=== PATIENT | male | born 1970 | race Caucasian/White ===

== ENCOUNTER 2018-06-03 20:17 | Emergency (ER) | payer OTHER, SELFPAY ==
[2018-06-03 20:20] VITALS: BP 160/102; PULSE 79; RESP 18; TEMP 37; O2SAT 98; BMI 30.2
--- NOTE | 2018-06-03 20:49 | ED.EPISTAXIS ---
HPI - Epistaxis <TISHA Beck - Last Filed: 06/03/18 21:58> General Chief complaint: Nasal Problem Stated complaint: bloody nose all day Time Seen by Provider: 06/03/18 20:37 Source: patient Mode of arrival: ambulatory Limitations: no limitations History of Present Illness HPI Narrative: Patient presents with chief complaint of epistaxis off and on throughout the day. He states that his nose bleeds for approximately 20 min and then hold pressure on it stops. He is primarily concerned given his history of ITP that was 5 years ago. He states that he presented at the same way when he was diagnosed with ITP. He complains of some nausea from swallowing blood. Otherwise he states he feels okay. He denies petechiae, but states he had them when he was diagnosed with ITP. Requesting a CBC check. Related Data Allergies Allergy/AdvReac Type Severity Reaction Status Date / Time No Known Drug Allergies Allergy Unverified 01/01/18 08:44 Review of Systems <HENRIETTA Beck - Last Filed: 06/03/18 21:58> Review of Systems GENERAL: Denies chills, fatigue, malaise, fever, sweats. HEENT: See HPI RESPIRATORY: Denies dyspnea, cough, wheezing, hemoptysis, sputum. CARDIOVASCULAR: Denies chest pain, palpitations, orthopnea, edema, GASTROINTESTINAL: Denies nausea, vomiting, abdominal pain, diarrhea, constipation, melena. : Denies dysuria, frequency, incontinence, hematuria, urinary retention. MUSCULOSKELETAL: denies weakness, joint pain, or bony pain SKIN: Denies rash, skin lesions, or other NEUROLOGIC: Denies weakness, headache, numbness, change in speech, confusion, seizures, incoordination. PSYCHIATRIC: No concerning psychosocial issues. 12 point review of systems is negative except for those stated above Exam <HENRIETTA Beck - Last Filed: 06/03/18 21:58> Narrative Exam Narrative: GENERAL: This is a well-nourished, well-developed patient, sitting on stretcher with nose clip on HEAD: Atraumatic. Normocephalic. No temporal or scalp tenderness. EYES: Pupils equal round and reactive. Extraocular motions intact. No scleral icterus. No injection or drainage. ENT: Clip on nose. No obvious bleeding. Throat without erythema, tonsillar hypertrophy or exudate. Uvula midline. Airway patent. NECK: Trachea midline. No JVD or lymphadenopathy. Supple, nontender, no meningeal signs. CARDIOVASCULAR: Regular rate and rhythm without murmurs, gallops, or rubs. RESPIRATORY: Clear to auscultation. Breath sounds equal bilaterally. No wheezes, rales, or rhonchi. GASTROINTESTINAL: Abdomen soft, non-tender, nondistended. No hepato-splenomegaly, or palpable masses. No guarding. EXTREMITIES: No clubbing, cyanosis, or edema. No joint tenderness, effusion, or edema noted. BACK: Nontender without deformity or crepitance. No flank tenderness. NEURO: AOx3. SKIN: No rash or erythema. No petechiae. Initial Vital Signs Initial Vital Signs: Vital Signs Temperature 98.6 F 06/03/18 20:20 Pulse Rate 79 06/03/18 20:20 Respiratory Rate 18 06/03/18 20:20 Blood Pressure 160/102 H 06/03/18 20:20 Pulse Oximetry 98 06/03/18 20:20 <Britney Godfrey DO - Last Filed: 06/05/18 01:50> Initial Vital Signs Initial Vital Signs: Vital Signs Temperature 98.6 F 06/03/18 20:20 Pulse Rate 79 06/03/18 20:20 Respiratory Rate 18 06/03/18 20:20 Blood Pressure 160/102 H 06/03/18 20:20 Pulse Oximetry 98 06/03/18 20:20 Course <ALEJANDRO Beck- - Last Filed: 06/03/18 21:58> Orders Ordered: ED Orders 06/03/18 21:07 Complete Blood Count AUTO DIFF Stat Reevaluation(s) Reevaluation #1: Discussed normal lab results with patient. Remove nose clip. No bleeding recurred. No obvious bleeding upon nasal exam. Time: 21:30 Reevaluation #2: Patient has had no rebleeding of nose. States her to go home. No questions or concerns. Time: 22:00 Vital Signs - 8 hr 06/03/18 20:20 06/03/18 21:41 Temperature 98.6 F Pulse Rate 79 66 Respiratory Rate 18 16 Blood Pressure 160/102 H Blood Pressure [Left Arm] 147/84 H Pulse Oximetry 98 99 <Britney Godfrey DO - Last Filed: 06/05/18 01:50> Orders Ordered: ED Orders 06/03/18 21:07 Complete Blood Count AUTO DIFF Stat Vital Signs - 8 hr 06/03/18 20:20 06/03/18 21:41 Temperature 98.6 F Pulse Rate 79 66 Respiratory Rate 18 16 Blood Pressure 160/102 H Blood Pressure [Left Arm] 147/84 H Pulse Oximetry 98 99 MDM - Epistaxis <HENRIETTA BeckBC - Last Filed: 06/03/18 21:58> Lab Data Result diagrams: 06/03/18 21:07 Lab Results 06/03/18 Range/Units 21:07 WBC 8.4 (4.5-11.0) X10^3/uL RBC 5.35 (4.5-5.9) X10^6/uL Hgb 16.2 (13.5-17.5) g/dL Hct 46.7 (41-53) % MCV 87.3 (80-100) fL MCH 30.4 (26-34) PG MCHC 34.8 (30-36) % RDW 12.9 (11.6-14.8) % Plt Count 189 (150-400) X10^3/uL Neut % (Auto) 47.1 L (50-75) % Lymph % (Auto) 38.8 (25-40) % Latimer % (Auto) 8.6 (3-14) % Eos % (Auto) 4.7 H (2-4) % Baso % (Auto) 0.8 (0-2) % Neut # (Auto) 3900 (0522-3597) /uL MDM Narrative Medical decision making narrative: Patient presents with epistaxis. He requested a CBC due to his history of ITP, which came back normal. His nose did not rebleed after removal of nose clip. I discussed at length monitoring for rebleeding, following up with primary care provider for worsening or no improvement. I discussed using nose clip in pressure if 3 bleeding were to occur. Patient questions or concerns. <Britney Godfrey DO - Last Filed: 06/05/18 01:50> Lab Data Lab Results 06/03/18 Range/Units 21:07 WBC 8.4 (4.5-11.0) X10^3/uL RBC 5.35 (4.5-5.9) X10^6/uL Hgb 16.2 (13.5-17.5) g/dL Hct 46.7 (41-53) % MCV 87.3 (80-100) fL MCH 30.4 (26-34) PG MCHC 34.8 (30-36) % RDW 12.9 (11.6-14.8) % Plt Count 189 (150-400) X10^3/uL Neut % (Auto) 47.1 L (50-75) % Lymph % (Auto) 38.8 (25-40) % Latimer % (Auto) 8.6 (3-14) % Eos % (Auto) 4.7 H (2-4) % Baso % (Auto) 0.8 (0-2) % Neut # (Auto) 3900 (6308-4139) /uL Discharge Plan Departure Patient Disposition: Home Clinical Impression: Epistaxis Discharge Date/Time: 06/03/18 22:04 Interventions: ED Discharge Assessment Last Done: 06/03/18 22:04 Instructions: Nosebleeds (Alternative Therapy), DI for Nosebleed Activity Restrictions/Additional Instructions: Your CBC check came back normal today. Your nose stopped bleeding after removal of the clip. I have given you instructions regarding nosebleeds, Including sitting forward and pinching your nose if rebleeding occurs. Please follow up with PCP if needed or come back to the ED if necessary. Referrals: Helen Sesay DO [Primary Care Provider] - <Britney Godfrey DO - Last Filed: 06/05/18 01:50> Cosign ED Attending Rodriguezature Attestation: I was immediately available in the department for consultation. Documentation has been reviewed. I agree with assessment and plan.
[2018-06-03 21:18] LABS: Add Manual Diff / Slide Review NO; Basophils Percent Auto 0.8 % (0-2); Eosinophils Percent Auto 4.7 % (2-4); Hematocrit 46.7 % (41-53); Hemoglobin 16.2 g/dL (13.5-17.5); Lymphocytes Percent Auto 38.8 % (25-40); Mean Corpuscular HGB Conc 34.8 % (30-36); Mean Corpuscular Hemoglobin 30.4 PG (26-34); Mean Corpuscular Volume 87.3 fL (80-100); Monocytes Percent Auto 8.6 % (3-14); Neutrophils Absolute Auto 3900 /uL (3000-5900); Neutrophils Percent Auto 47.1 % (50-75); Platelet Count 189 X10^3/uL (150-400); Red Blood Cell Count 5.35 X10^6/uL (4.5-5.9); Red Cell Distribution Width 12.9 % (11.6-14.8); White Blood Cell Count 8.4 X10^3/uL (4.5-11.0)
[2018-06-03 21:41] VITALS: BP 147/84; PULSE 66; RESP 16; O2SAT 99
== END 2018-06-03 22:04 | disposition home or self-care (01) ==
PROVIDERS: Emergency Provider Nurse Practitioner Family; Family Provider Family Medicine; PCP Family Medicine
DX: R04.0 Epistaxis (principal); Z86.2 Personal history of diseases of the blood and blood-forming organs and certain disorders involving the immune mechanism
CPT/HCPCS: 36415; 85025; 99282; 99283

== ENCOUNTER → 2019-08-01 12:25 | Outpatient (CLI) | payer OTHER, SELFPAY ==
[2019-08-01 12:49] LABS: Add Manual Diff / Slide Review NO; Basophils Absolute Auto 0 /uL (0-100); Basophils Percent Auto 0.7 % (0-2); Eosinophils Absolute Auto 200 /uL (0-450); Eosinophils Percent Auto 3.6 % (2-4); Hematocrit 44.3 % (41-53); Hemoglobin 15.4 g/dL (13.5-17.5); Lymphocytes Absolute Auto 2200 /uL (1100-4500); Lymphocytes Percent Auto 40.9 % (25-40); Mean Corpuscular HGB Conc 34.7 % (30-36); Mean Corpuscular Hemoglobin 31.2 PG (26-34); Mean Corpuscular Volume 89.8 fL (80-100); Monocytes Absolute Auto 500 /uL (0-900); Neutrophils Absolute Auto 2400 /uL (1500-7000); Neutrophils Percent Auto 45.8 % (50-75); Platelet Count 162 X10^3/uL (150-400); Red Blood Cell Count 4.93 X10^6/uL (4.5-5.9); Red Cell Distribution Width 13.1 % (11.6-14.8); White Blood Cell Count 5.3 X10^3/uL (4.5-11.0)
[2019-08-01 13:31] LABS: Alanine Aminotransferase 22 IU/L (<50); Albumin 4.5 g/dL (3.5-5.0); Albumin Globulin Ratio 1.9 (1.0-2.8); Alkaline Phosphatase 58 U/L (38-126); Aspartate Aminotransferase 25 IU/L (17-59); BUN Creatinine Ratio 14.4 (6-22); Bilirubin Total 2.2 mg/dL (0.2-1.3); Blood Urea Nitrogen 13 mg/dL (9-20); Calcium 9.6 mg/dL (8.4-10.2); Carbon Dioxide 29 mmol/L (22-32); Chloride 103 mmol/L (98-107); Cholesterol 233 mg/dL (140-199); Estimated Glomerular Filt Rate > 60.0 mL/min (>60); Globulin 2.4 g/dL (1.7-4.1); Glucose 95 mg/dL (70-100); HDL Cholesterol 63 mg/dL (40-60); HEMOLYSIS < 15 (0-50); LDL Cholesterol Calculated 152 mg/dL (<100); Potassium 4.6 mmol/L (3.4-5.1); Sodium 140 mmol/L (137-145); Total Protein 6.9 g/dL (6.3-8.2); Triglycerides 88 mg/dL (35-150)
[2019-08-01 13:45] LABS: Free T3, Triiodothyronine Free 3.47 pg/mL (2.77-5.27); Free T4, Direct Thyroxine 0.99 ng/dL (0.78-2.19)
[2019-08-01 13:57] LABS: Prostate Specific Antigen 0.426 ng/mL (0.10-4.00)
[2019-08-01 13:59] LABS: Thyroid Stimulating Hormone 2.16 uIU/mL (0.47-4.68)
== END ==
PROVIDERS: PCP Family Medicine; Visit Provider Nurse Practitioner
DX: Z00.00 Encounter for general adult medical examination without abnormal findings (principal); E78.5 Hyperlipidemia, unspecified; Z83.49 Family history of other endocrine, nutritional and metabolic diseases; Z86.2 Personal history of diseases of the blood and blood-forming organs and certain disorders involving the immune mechanism
CPT/HCPCS: 36415; 80053; 80061; 84153; 84439; 84443; 84481; 85025

== ENCOUNTER → 2021-08-21 10:37 | Outpatient (CLI) | payer OTHER, SELFPAY ==
[2021-08-21 12:12] LABS: COVID19 -Nasal RAPID POSITIVE (Negative)
== END ==
PROVIDERS: PCP Family Medicine; Visit Provider Physician Assistant
DX: U07.1 COVID-19 (principal); Z20.822 Contact with and (suspected) exposure to COVID-19
CPT/HCPCS: 87635

== ENCOUNTER → 2023-11-10 08:00 | Outpatient (CLI) | payer OTHER, SELFPAY ==
--- NOTE | 2023-11-10 08:01 | DI.RAD.S_ITS ---
PROCEDURE: XR LUMBAR SPINE 2-3V INDICATIONS: eval lumbar strain TECHNIQUE: 3 views of the lumbar spine were acquired. COMPARISON: None. FINDINGS: Bones: 5 [id number] vertebrae are present. There is mild leftward curvature of lumbar spine centered at L3 level. Degenerative endplate changes throughout lumbar spine is seen. No vertebral body compression fractures. No suspicious bony lesions. Soft tissues: Overlying bowel gas pattern is normal. No suspicious soft tissue calcifications. IMPRESSION: No acute compression fracture or spondylolisthesis. Mild degenerative disc disease throughout lumbar spine. Very mild leftward curvature as above. Dictated by: Rajiv Manjarrez M.D. on 11/10/2023 at 10:56 Approved by: Rajiv Manjarrez M.D. on 11/10/2023 at 11:09
[2023-11-10 09:21] LABS: Add Manual Diff / Slide Review NO; Basophils Absolute Auto 0 /uL (0-100); Basophils Percent Auto 0.6 % (0-2); Eosinophils Absolute Auto 200 /uL (0-450); Eosinophils Percent Auto 4.1 % (2-4); Hematocrit 45.8 % (41-53); Hemoglobin 15.8 g/dL (13.5-17.5); Lymphocytes Absolute Auto 2700 /uL (1100-4500); Lymphocytes Percent Auto 46.2 % (25-40); Mean Corpuscular HGB Conc 34.5 % (30-36); Mean Corpuscular Hemoglobin 31.2 PG (26-34); Mean Corpuscular Volume 90.6 fL (80-100); Monocytes Absolute Auto 500 /uL (0-900); Monocytes Percent Auto 8.9 % (3-14); Neutrophils Absolute Auto 2400 /uL (1500-7000); Neutrophils Percent Auto 40.2 % (50-75); Platelet Count 160 X10^3/uL (150-400); Red Blood Cell Count 5.06 X10^6/uL (4.5-5.9); Red Cell Distribution Width 12.6 % (11.6-14.8); White Blood Cell Count 5.9 X10^3/uL (4.5-11.0)
[2023-11-10 09:46] LABS: Alanine Aminotransferase 24 IU/L (<50); Albumin 4.5 g/dL (3.5-5.0); Albumin Globulin Ratio 1.7 (1.0-2.8); Alkaline Phosphatase 49 U/L (38-126); Aspartate Aminotransferase 28 IU/L (17-59); BUN Creatinine Ratio 18.8 (6-22); Bilirubin Total 1.8 mg/dL (0.2-1.3); Blood Urea Nitrogen 18 mg/dL (9-20); Calcium 9.3 mg/dL (8.4-10.2); Carbon Dioxide 28 mmol/L (22-32); Chloride 105 mmol/L (98-107); Cholesterol 218 mg/dL (140-199); Estimated Glomerular Filt Rate > 60 mL/min (>60); Globulin 2.7 g/dL (1.7-4.1); Glucose 85 mg/dL (70-100); HDL Cholesterol 57 mg/dL (40-60); HEMOLYSIS < 15 (0-50); LDL Cholesterol Calculated 143 mg/dL (<100); Potassium 4.4 mmol/L (3.4-5.1); Sodium 137 mmol/L (137-145); Total Protein 7.2 g/dL (6.3-8.2); Triglycerides 89 mg/dL (35-150)
[2023-11-10 10:15] LABS: Prostate Specific Antigen 0.501 ng/mL (0.10-4.00)
== END ==
PROVIDERS: PCP Family Medicine; Referring Provider Family Medicine; Visit Provider Family Medicine
DX: Z00.00 Encounter for general adult medical examination without abnormal findings (principal); S39.012A Strain of muscle, fascia and tendon of lower back, initial encounter; M51.36 Other intervertebral disc degeneration, lumbar region; E78.5 Hyperlipidemia, unspecified; X58.XXXA Exposure to other specified factors, initial encounter
CPT/HCPCS: 36415; 72100; 80053; 80061; 84153; 85025

== ENCOUNTER 2023-12-29 08:18 | Day surgery (SDC) | payer OTHER, SELFPAY ==
--- NOTE | 2023-12-29 | PATH_ITS ---
[facility] Accession Number: [id number] No. of containers..01 Tissue . 01 Material submitted: . colon - ASCENDING COLON . 01 Diagnosis: ASCENDING COLON : Tubular adenoma. STO 01/05/2024 1149 Local . 01 Electronically signed: . Krzysztof Orozco MD, Pathologist NPI- [id number] . 01 Gross description: . ASCENDING COLON : Received in formalin are 2 fragment(s) of chang, soft tissue measuring 0.2 x 0.2 x 0.1 cm to 0.3 x 0.3 x 0.3 cm submitted entirely in 1 cassette(s) /JOEL 01/05/2024 1149 Local . 01 Pathologist provided ICD-10: D12.2 . 01 CPT . 114401 Specimen Comment: A courtesy copy of this report has been sent to [phone] Performed at: 01 [facility] [address] [place] [address], [place], [place] [id number] MD Krzysztof Orozco MD Phone: [phone]
[2023-12-29 08:35] VITALS: BP 126/73; PULSE 52; RESP 17; TEMP 36.4; O2SAT 99
[2023-12-29] MEDS: LACTATED RINGERS 1,000 ML 42 ML IV (08:45)
--- NOTE | 2023-12-29 09:15 | PM.HP.1 ---
History of Present Illness History of Present Illness Date Patient Seen: 12/29/23 Time Patient Seen: 09:15 Chief complaint: Screening Colonoscopy Narrative: First colonoscopy for colon cancer screening. No family history or symptoms of concern FORMERLY [facility], [facility] Medical History Acute lumbar myofascial strain Family history of cardiovascular disease Encounter for well adult exam without abnormal findings Chronic ITP (idiopathic thrombocytopenia) (2012) Hayfever (1979) Otitis media (1979) Surgical History Anesthesia History of third molar tooth extraction Status post myringotomy with insertion of tube (1979) Family History Father Age: 82 Heart disease Hypertension High cholesterol Myocardial infarction Mother Thyroid disorder Social History Smoking Status: Never smoker Meds Home Medications and Allergies Home Medications Medication Instructions Recorded Confirmed Type methylsulfonylmethane 1,000 mg 1,000 mg PO BID 08/01/19 12/29/23 History capsule (MSM) psyllium husk 0.52 gram capsule 0.52 gram PO DAILY 08/01/19 12/29/23 History (Daily Fiber) peg 3350-sod sulf,[id number]-boi-aos 1,000 ml PO DIRECTED #2,000 mL 11/27/23 Rx 178.7-7.3-0.5-1.12-0.9 gram oral soln (Suflave) pravastatin 20 mg tablet 20 mg PO BEDTIME #90 tabs 11/29/23 12/29/23 Rx Allergies Allergy/AdvReac Type Severity Reaction Status Date / Time No Known Drug Allergies Allergy Verified 12/29/23 08:34 Review of Systems Review of Systems ROS: Yes All systems reviewed with the patient and are negative except as otherwise documented Exam Vital Signs (past 8 hours): - 12/29/23 08:35 Temperature 97.5 F L Pulse Rate 52 L Respiratory Rate 17 Blood Pressure 126/73 Pulse Oximetry 99 Oxygen Delivery Method Room Air Oxygen Flow Rate 0 Oxygen Delivery Method Room Air Oxygen Flow Rate 0 Const General: cooperative, healthy appearing and comfortable Nutritional Appearance: average body habitus HENMT Head: normocephalic and atraumatic Eyes Periorbital: periorbital findings normal Sclera: sclerae normal Neck Neck: trachea midline Chest Chest: normal inspection of the chest Resp Effort & Inspection: normal respiratory effort and able to speak in complete sentences Cardio Rate: regular rate Rhythm: regular rhythm Skin General: elasticity normal and turgor normal Hair: normal Neuro General: patient alert, patient awake and patient oriented x3 Cognition: normal cognition Psych Appearance: grossly normal Mental Status: mental status grossly normal Affect: normal affect Judgment: judgment good Assessment & Plan Assessment & Plan narrative: colon cancer screening using colonoscopy and anesthesia Time Spent With Patient Time with patient: less than 30 minutes
--- NOTE | 2023-12-29 09:54 | PM.OP.COLON ---
Operative Date/Time/Diagnoses Date of procedure: 12/29/23 Time of procedure: 09:55 Pre-op diagnosis: Colon cancer screening Post-op diagnosis: same Procedure & Clinicians Study performed: Colonoscopy with cold forceps polypectomy under anesthesia Same procedure as scheduled: Yes Indications: Colon cancer screening Surgeon: Karishma Lloyd Procedure Notes Procedure in detail: Preop diagnosis: Colon cancer screening Postop diagnosis: Same Operative procedure: Colonoscopy with cold forceps polypectomy Surgeon: Kell Lloyd MD Findings: Scattered modest diverticuli throughout the colon. Small sessile polyp 3 mm in the ascending colon Procedure: Patient placed in lateral position. Rectal exam performed showing normal tone no masses. Scope was inserted into the rectum and advanced to ileocecal valve with some difficulty requiring abdominal pressure as well as repositioning. Retroflex was included in the rectum. Impression: Single polyp in the ascending colon. Scattered modest size diverticuli throughout the colon. Plan: Repeat colonoscopy in 5 years. Await biopsy results. Findings: divertiulosis and polyp(s) Specimen(s): other (ascending 3mm sessile polyp) Complications: none Post-procedure Recommendations: Colonoscopy in 5 years Follow up: as needed Disposition: PACU
[2023-12-29 09:56] VITALS: BP 112/70; PULSE 57; RESP 16; TEMP 36.6; O2SAT 99
[2023-12-29 10:01] VITALS: BP 112/78; PULSE 59; RESP 14; O2SAT 98
[2023-12-29 10:06] VITALS: BP 117/77; PULSE 58; RESP 14; O2SAT 98
[2023-12-29 10:11] VITALS: BP 118/78; PULSE 58; RESP 18; O2SAT 98
== END 2023-12-29 10:27 | disposition home or self-care (01) ==
PROVIDERS: PCP Family Medicine; Referring Provider Surgery; Visit Provider Surgery
PROC: 0DJD8ZZ Inspection of Lower Intestinal Tract, Via Natural or Artificial Opening Endoscopic (ICD-10-PCS; CPT 45378; principal; 2023-12-29 09:15)
DX: Z12.11 Encounter for screening for malignant neoplasm of colon (principal); K57.30 Diverticulosis of large intestine without perforation or abscess without bleeding; D12.2 Benign neoplasm of ascending colon
CPT/HCPCS: 45380; J2704

== ENCOUNTER → 2024-06-12 07:42 | Outpatient (CLI) | payer OTHER, SELFPAY ==
[2024-06-12 08:30] LABS: Cholesterol 178 mg/dL (140-199); HDL Cholesterol 63 mg/dL (40-60); LDL Cholesterol Calculated 92 mg/dL (<100); Triglycerides 114 mg/dL (35-150)
== END ==
PROVIDERS: PCP Family Medicine; Referring Provider Family Medicine; Visit Provider Family Medicine
DX: E78.00 Pure hypercholesterolemia, unspecified (principal); Z82.49 Family history of ischemic heart disease and other diseases of the circulatory system
CPT/HCPCS: 36415; 80061

== ENCOUNTER → 2024-10-11 15:38 | Outpatient (CLI) | payer OTHER, SELFPAY ==
--- NOTE | 2024-10-11 15:39 | DI.RAD.S_ITS ---
PROCEDURE: XR RIBS LT MIN 3V W CXR1V INDICATIONS: eval L ribs TECHNIQUE: 2 views of the ribs were acquired, along with a single view chest. COMPARISON: None. FINDINGS AND IMPRESSION: No displaced acute fracture or dislocation. Lungs are clear on this single view evaluation. Heart size is at the upper limit of normal. If there is high concern for occult injury, consider repeat radiography or cross-sectional imaging. Dictated by: Hossein Mayorga M.D. on 10/12/2024 at 10:16 Approved by: Hossein Mayorga M.D. on 10/12/2024 at 10:17
== END ==
LOC: RAD 15:39
PROVIDERS: PCP Family Medicine; Referring Provider Family Medicine; Visit Provider Family Medicine
DX: R07.81 Pleurodynia (principal)
CPT/HCPCS: 71101

== ENCOUNTER → 2024-11-12 07:29 | Outpatient (CLI) | payer OTHER, SELFPAY ==
[2024-11-12 08:27] LABS: Add Manual Diff / Slide Review NO; Basophils Absolute Auto 100 /uL (0-100); Basophils Percent Auto 0.9 % (0-2); Eosinophils Absolute Auto 300 /uL (0-450); Eosinophils Percent Auto 4.6 % (2-4); Hematocrit 44.1 % (41-53); Hemoglobin 15.3 g/dL (13.5-17.5); Lymphocytes Absolute Auto 2600 /uL (1100-4500); Lymphocytes Percent Auto 45.4 % (25-40); Mean Corpuscular HGB Conc 34.6 % (30-36); Mean Corpuscular Hemoglobin 31.7 PG (26-34); Mean Corpuscular Volume 91.6 fL (80-100); Monocytes Absolute Auto 500 /uL (0-900); Monocytes Percent Auto 8.7 % (3-14); Neutrophils Absolute Auto 2300 /uL (1500-7000); Neutrophils Percent Auto 40.4 % (50-75); Platelet Count 158 X10^3/uL (150-400); Red Blood Cell Count 4.82 X10^6/uL (4.5-5.9); Red Cell Distribution Width 12.7 % (11.6-14.8); White Blood Cell Count 5.7 X10^3/uL (4.5-11.0)
[2024-11-12 08:57] LABS: Alanine Aminotransferase 24 IU/L (<50); Albumin 4.5 g/dL (3.5-5.0); Alkaline Phosphatase 56 U/L (38-126); Aspartate Aminotransferase 27 IU/L (17-59); BUN Creatinine Ratio 14.6 (6-22); Bilirubin Total 1.3 mg/dL (0.2-1.3); Blood Urea Nitrogen 14 mg/dL (9-20); Calcium 9.3 mg/dL (8.4-10.2); Carbon Dioxide 25 mmol/L (22-32); Chloride 104 mmol/L (98-107); Cholesterol 185 mg/dL (140-199); Estimated Glomerular Filt Rate > 60 mL/min (>60); Globulin 2.2 g/dL (1.7-4.1); Glucose 82 mg/dL (70-100); HDL Cholesterol 57 mg/dL (40-60); HEMOLYSIS < 15 (0-50); LDL Cholesterol Calculated 108 mg/dL (<100); Potassium 4.4 mmol/L (3.4-5.1); Sodium 137 mmol/L (137-145); Total Protein 6.7 g/dL (6.3-8.2); Triglycerides 102 mg/dL (35-150)
[2024-11-12 09:25] LABS: Prostate Specific Antigen 0.428 ng/mL (0.10-4.00)
== END ==
PROVIDERS: PCP Family Medicine; Referring Provider Family Medicine; Visit Provider Family Medicine
DX: Z00.00 Encounter for general adult medical examination without abnormal findings (principal); E78.5 Hyperlipidemia, unspecified; Z83.49 Family history of other endocrine, nutritional and metabolic diseases
CPT/HCPCS: 36415; 80053; 80061; 84153; 85025

== ENCOUNTER 2025-05-09 21:35 | Emergency (ER) | payer OTHER, SELFPAY ==
[2025-05-09 21:54] VITALS: BP 168/88; PULSE 72; RESP 18; O2SAT 99; BMI 28.0
--- NOTE | 2025-05-09 22:14 | PC.NURSE ---
pt states he dropped a knife while cooking and it sliced his right lower leg, pressure dressing placed at triage and left on until evaluation by Dr Lawler
--- NOTE | 2025-05-09 23:20 | ED.WOUNDLAC ---
HPI - Wound/Laceration General Chief Complaint: Wound/Laceration Stated Complaint: Rt foot laceration, currently bleeding Time Seen by Provider: 05/09/25 22:18 Source: patient Mode of arrival: Wheelchair History of Present Illness HPI narrative: 54-year-old male dropped a kitchen knife at home which bounced on the floor and then spun upward and cut his right leg above the ankle medial aspect, couple hours before arrival. Initial bleeding stopped with local pressure, then had recurrence of nonpulsatile but steady bleeding from the wound. He does not take blood thinner medications. No loss of tendon function, can move foot/toes well. No distal numbness tingling to foot. No other injuries. Last tetanus many years ago. Related Data Home Medications ?Medication ?Instructions ?Recorded ?Confirmed methylsulfonylmethane 1,000 mg 1,000 mg PO BID 08/01/19 11/14/24 capsule (MSM) psyllium husk 0.52 gram capsule 0.52 gram PO DAILY 08/01/19 11/14/24 (Daily Fiber) ascorbate calcium (vitamin C) PO 10/11/24 11/14/24 Previous Rx's ?Medication ?Instructions ?Recorded pravastatin 20 mg tablet 20 mg PO BEDTIME #90 tabs 09/03/24 Allergies Allergy/AdvReac Type Severity Reaction Status Date / Time No Known Drug Allergies Allergy Verified 05/09/25 21:54 Patient History Medical History (Updated 05/10/25 @ 00:12 by Hakeem Marroquin MD) History of colon polyps Left-sided thoracic back pain Hordeolum externum (stye) Acute lumbar myofascial strain Family history of cardiovascular disease Encounter for well adult exam without abnormal findings Chronic ITP (idiopathic thrombocytopenia) (2012) Hayfever (1979) Otitis media (1979) Surgical History Anesthesia History of third molar tooth extraction Status post myringotomy with insertion of tube (1979) Family History Father Age: 83 Heart disease Hypertension High cholesterol Myocardial infarction Mother Thyroid disorder Social History Smoking Status: Never smoker Smoking Status: Never smoker alcohol intake frequency: a few times a week Exam Narrative Exam Narrative: GENERAL: Well-developed patient, in mild distress. HEAD: Atraumatic. Normocephalic. EYES: Pupils equal round and reactive. Extraocular motions intact. No scleral icterus. No injection or drainage. ENT: Nose without bleeding, purulent drainage. Throat without erythema, tonsillar hypertrophy or exudate. Airway patent. NECK: Trachea midline. Non tender CARDIOVASCULAR: Regular rate and rhythm without murmurs, gallops, or rubs. RESPIRATORY: Clear to auscultation. Breath sounds equal bilaterally. No wheezes, rales, or rhonchi. GASTROINTESTINAL: Abdomen soft, non-tender, nondistended. EXTREMITIES: Distal right foreleg medial aspect with linear laceration 1.5 cm length, nonpulsatile slight ooze, stopped easily with local pressure. BACK: Nontender without deformity or crepitance. No flank tenderness. NEURO: AOx3. Motor functions grossly nonfocal. SKIN: No rash or erythema of visible areas Initial Vital Signs Initial Vital Signs: Vital Signs Pulse Rate 72 05/09/25 21:54 Respiratory Rate 18 05/09/25 21:54 Blood Pressure 168/88 H 05/09/25 21:54 Pulse Oximetry 99 05/09/25 21:54 Oxygen Delivery Method Room Air 05/09/25 21:54 Procedures Laceration Repair Laceration 1: Time of procedure: 00:05 Site: lower extremity (right distal foreleg ankle ) Size (cm): 1.5 Depth: simple, single layer Local Anesthetic: lidocaine 1% and with epi Amount of anesthesia used (mL): 4 Skin layer closed with: nylon Skin layer suture size: 3-0 Number of sutures: 3 Technique: simple, interrupted Course Orders Ordered: Discontinued Medications Bacitracin (Bacitracin 28 Gm Oint) 1 applic TOP NOW ONE Stop: 05/10/25 00:14 Last Admin: 05/10/25 00:18 Dose: Not Given Documented By: MARIE Bacitracin (Bacitracin Oint 0.9 Gm Pckt) 1 applic TOP NOW ONE Stop: 05/10/25 00:16 Last Admin: 05/10/25 00:18 Dose: 1 applic Documented By: MARIE Diphtheria/Tetanus/Acell Pertussis (Tet,Diph,Pertuss(Acell),Vac/Pf 0.5 Ml Syringe) 0.5 ml IM .ONCE ONE Stop: 05/10/25 00:05 Last Admin: 05/10/25 00:18 Dose: 0.5 ml Documented By: MARIE Lidocaine/Epinephrine (Lidocaine 1% W/Epi 10ml) 20 ml INJ INTRA-OP ONE Stop: 05/09/25 23:27 Last Admin: 05/10/25 00:29 Dose: 20 ml Documented By: MARIE Vital Signs Vital signs: Vital Signs - 8 hr 05/09/25 21:54 05/10/25 00:31 Pulse Rate 72 84 Respiratory Rate 18 18 Blood Pressure 168/88 H 160/78 H Pulse Oximetry 99 100 Oxygen Delivery Method Room Air Room Air MDM - Wound/Laceration MDM Narrative Medical decision making narrative: 54-year-old male with accidental knife wound to right foreleg, from a bouncing dropped kitchen knife, small wound but persisting bleeding at home. Right foreleg laceration above the level of the ankle. Primary closure with suturing after local injection, see separate laceration repair note. Good hemostasis and cosmesis. Tdap given, tetanus updated. Tolerated procedure well. Wound check advised 2 days, with likely suture removal 7 days. Discharged home with . Return precautions discussed. Discharge Plan Departure Patient Disposition: Home Clinical Impression: Laceration of leg Instructions: DI for Laceration Repair Activity Restrictions/Additional Instructions: Accidental knife related small but persisting bleeding laceration to the distal right leg. No obvious tendon dysfunction. Nonpulsatile but persistent ooze bleeding. Primary closure after local anesthetic with 3 stitches, good cosmesis, good hemostasis, no longer bleeding. Tetanus updated. Wound check consider in 2 days to make sure there is no infection changes. Suture removal likely in 7 days. Return earlier for any change worsening symptoms or any concerns prior. Prescriptions: No Action pravastatin 20 mg tablet 20 mg PO BEDTIME Qty: 90 3RF ascorbate calcium (vitamin C) PO psyllium husk [Daily Fiber] 0.52 gram capsule 0.52 gram PO DAILY MSM 1,000 mg capsule 1,000 mg PO BID Referrals: Tex Ferrer DO [Primary Care Provider, Family Practice] Stand Alone Forms: Patient Portal/API
[2025-05-10] MEDS: TET,DIPH,PERTUSS(ACELL),VAC/PF 0.5 ML SYRINGE IM (00:18)
[2025-05-10] MEDS: BACITRACIN OINT 0.9 GM PCKT 1 APPLIC TOP (00:18)
[2025-05-10] MEDS: LIDOCAINE 1% W/EPI 10ML 20 ML INJ (00:29)
--- NOTE | 2025-05-10 00:30 | PC.NURSE ---
wound cleaned with water, bacitracin and bandaid applied
[2025-05-10 00:31] VITALS: BP 160/78; PULSE 84; RESP 18; O2SAT 100
== END 2025-05-10 00:33 | disposition home or self-care (01) ==
PROVIDERS: Emergency Provider Emergency Medicine; PCP Family Medicine
DX: S81.811A Laceration without foreign body, right lower leg, initial encounter (principal); W26.0XXA Contact with knife, initial encounter; Z23 Encounter for immunization
CPT/HCPCS: 12001; 90471; 99283; 90715